=== PATIENT | female | born 1980 | race Caucasian/White ===

== ENCOUNTER → 2018-04-19 11:21 | Outpatient (CLI) | payer OTHER, SELFPAY ==
--- NOTE | 2018-04-19 11:24 | DI.RAD.S_ITS ---
PROCEDURE: XR WRIST RT MIN 3V INDICATIONS: wrist pain TECHNIQUE: 4 views of the wrist are reviewed. COMPARISON: None. FINDINGS: Bones: No fractures or dislocations. No suspicious bony lesions. Scaphoid view: Normal. Soft tissues: No suspicious soft tissue calcifications. IMPRESSION: No trauma found, source of pain is not seen. Dictated by: Bossman Stoddard M.D. on 04/19/2018 at 12:18 Approved by: Bossman Stoddard M.D. on 04/19/2018 at 12:19
--- NOTE | 2018-04-19 11:24 | DI.RAD.S_ITS ---
PROCEDURE: XR WRIST LT MIN 3V INDICATIONS: wrist pain TECHNIQUE: 4 views of the wrist were acquired. COMPARISON: [facility], CR, XR WRIST RT MIN 3V, 04/19/2018, 11:41. FINDINGS: Bones: No fractures or dislocations. No suspicious bony lesions. Scaphoid view: No trauma to the scaphoid is seen. Soft tissues: No suspicious soft tissue calcifications. IMPRESSION: No trauma found, no appreciable evidence of erosive arthritis. A definite source of current pain is not seen. Dictated by: Bossman Stoddard M.D. on 04/19/2018 at 12:19 Approved by: Bossman Stoddard M.D. on 04/19/2018 at 12:19
[2018-04-19 11:52] LABS: Hematocrit 46.4 % (36-46); Hemoglobin 15.6 g/dL (12.0-16.0); Mean Corpuscular HGB Conc 33.7 % (30-36); Mean Corpuscular Hemoglobin 30.1 PG (26-34); Mean Corpuscular Volume 89.4 fL (80-100); Platelet Count 261 X10^3/uL (150-400); Red Blood Cell Count 5.19 X10^6/uL (4.0-5.2); Red Cell Distribution Width 12.6 % (11.6-14.8); White Blood Cell Count 7.9 X10^3/uL (4.5-11.0)
[2018-04-19 12:09] LABS: Erythrocyte Sedimentation Rate 3 MM/HR (0-20)
[2018-04-19 12:25] LABS: BUN Creatinine Ratio 14.4 (6-22); Blood Urea Nitrogen 13 mg/dL (7-17); C-Reactive Protein Quant < 0.5 mg/dL (<1.0); Carbon Dioxide 27 mmol/L (22-32); Chloride 102 mmol/L (98-107); Estimated Glomerular Filt Rate > 60.0 mL/min (>60); Glucose 94 mg/dL (70-100); HEMOLYSIS < 15 (0-50); Potassium 4.6 mmol/L (3.4-5.1); Sodium 139 mmol/L (137-145)
[2018-04-19 12:26] LABS: Rheumatoid Factor < 8.6 IU/mL (<12.0)
[2018-04-19 12:53] LABS: Thyroid Stimulating Hormone 1.45 uIU/mL (0.47-4.68)
[2018-04-19 13:08] LABS: Neutrophils Absolute Manual 5056 /uL (3000-5900); Total Cells Counted 100
[2018-04-19 13:14] LABS: RBC Morphology Norm
[2018-04-23 17:02] LABS: CCP Antibody (IgG) < 16 Units (< 20)
== END ==
PROVIDERS: PCP Family Medicine; Visit Provider Family Medicine
DX: M25.532 Pain in left wrist (principal); M25.531 Pain in right wrist; M25.40 Effusion, unspecified joint; E03.9 Hypothyroidism, unspecified
CPT/HCPCS: 36415; 73110; 80048; 83516; 84443; 85025; 85651; 86140; 86430

== ENCOUNTER → 2018-04-25 12:39 | Outpatient (CLI) | payer OTHER, SELFPAY | PROVIDERS: PCP Family Medicine; Visit Provider Family Medicine | DX: M79.603 Pain in arm, unspecified (principal) | CPT/HCPCS: 95885; 95886; 95911 ==

== ENCOUNTER → 2019-08-22 09:01 | Outpatient (CLI) | payer OTHER, SELFPAY ==
[2019-08-22 09:55] LABS: Add Manual Diff / Slide Review NO; Basophils Absolute Auto 0 /uL (0-100); Basophils Percent Auto 0.3 % (0-2); Eosinophils Absolute Auto 100 /uL (0-450); Eosinophils Percent Auto 1.6 % (2-4); Hematocrit 43.4 % (36-46); Hemoglobin 14.6 g/dL (12.0-16.0); Lymphocytes Absolute Auto 1800 /uL (1100-4500); Lymphocytes Percent Auto 27.1 % (25-40); Mean Corpuscular HGB Conc 33.7 % (30-36); Mean Corpuscular Hemoglobin 30.3 PG (26-34); Monocytes Absolute Auto 400 /uL (0-900); Monocytes Percent Auto 6.2 % (3-14); Neutrophils Absolute Auto 4400 /uL (1500-7000); Neutrophils Percent Auto 64.8 % (50-75); Platelet Count 206 X10^3/uL (150-400); Red Blood Cell Count 4.82 X10^6/uL (4.0-5.2); Red Cell Distribution Width 12.6 % (11.6-14.8); White Blood Cell Count 6.8 X10^3/uL (4.5-11.0)
[2019-08-22 16:44] LABS: Alanine Aminotransferase 23 IU/L (<35); Albumin 4.3 g/dL (3.5-5.0); Albumin Globulin Ratio 1.5 (1.0-2.8); Alkaline Phosphatase 75 U/L (38-126); Aspartate Aminotransferase 27 IU/L (14-36); Bilirubin Total 0.4 mg/dL (0.2-1.3); Blood Urea Nitrogen 13 mg/dL (7-17); Calcium 9.7 mg/dL (8.4-10.2); Carbon Dioxide 27 mmol/L (22-32); Chloride 105 mmol/L (98-107); Estimated Glomerular Filt Rate > 60.0 mL/min (>60); Globulin 2.9 g/dL (1.7-4.1); Glucose 92 mg/dL (70-100); HEMOLYSIS < 15 (0-50); Potassium 4.8 mmol/L (3.4-5.1); Sodium 138 mmol/L (137-145); Total Protein 7.2 g/dL (6.3-8.2)
[2019-08-22 17:19] LABS: Ferritin 37 ng/mL (6-137)
== END ==
PROVIDERS: PCP Family Medicine; Referring Provider Family Medicine; Visit Provider Family Medicine
DX: E03.9 Hypothyroidism, unspecified (principal); M25.50 Pain in unspecified joint
CPT/HCPCS: 36415; 80053; 82728; 84443; 85025

== ENCOUNTER → 2020-09-21 14:06 | Outpatient (CLI) | payer OTHER, SELFPAY ==
[2020-09-21 16:10] LABS: Add Manual Diff / Slide Review NO; Basophils Absolute Auto 0 /uL (0-100); Basophils Percent Auto 0.4 % (0-2); Eosinophils Absolute Auto 100 /uL (0-450); Eosinophils Percent Auto 1.4 % (2-4); Hemoglobin 13.9 g/dL (12.0-16.0); Lymphocytes Absolute Auto 2500 /uL (1100-4500); Lymphocytes Percent Auto 35.3 % (25-40); Mean Corpuscular Hemoglobin 30.8 PG (26-34); Mean Corpuscular Volume 90.6 fL (80-100); Monocytes Absolute Auto 400 /uL (0-900); Neutrophils Absolute Auto 4000 /uL (1500-7000); Neutrophils Percent Auto 56.9 % (50-75); Platelet Count 217 X10^3/uL (150-400); Red Blood Cell Count 4.52 X10^6/uL (4.0-5.2); Red Cell Distribution Width 12.7 % (11.6-14.8)
[2020-09-21 16:19] LABS: Alanine Aminotransferase 28 IU/L (<35); Albumin Globulin Ratio 1.4 (1.0-2.8); Alkaline Phosphatase 93 U/L (38-126); Aspartate Aminotransferase 27 IU/L (14-36); BUN Creatinine Ratio 15.3 (6-22); Bilirubin Total 0.5 mg/dL (0.2-1.3); Blood Urea Nitrogen 11 mg/dL (7-17); C-Reactive Protein Quant 0.5 mg/dL (<1.0); Calcium 9.4 mg/dL (8.4-10.2); Carbon Dioxide 25 mmol/L (22-32); Chloride 107 mmol/L (98-107); Estimated Glomerular Filt Rate > 60.0 mL/min (>60); Globulin 2.9 g/dL (1.7-4.1); Glucose 80 mg/dL (70-100); HEMOLYSIS < 15 (0-50); Potassium 4.5 mmol/L (3.4-5.1); Sodium 138 mmol/L (137-145); Total Protein 6.9 g/dL (6.3-8.2)
[2020-09-21 16:46] LABS: Thyroid Stimulating Hormone 0.818 uIU/mL (0.47-4.68)
[2020-09-21 17:00] LABS: Erythrocyte Sedimentation Rate 5 MM/HR (0-20)
[2020-09-22 16:28] LABS: Deamidated Gliadin Ab IgA 4 units (0-19); Deamidated Gliadin Ab IgG 1 units (0-19); Immunoglobulin A,Qn 262 mg/dL (87-352); t-Transglutaminase IgA 2 U/mL (0-3)
== END ==
PROVIDERS: PCP Family Medicine; Referring Provider Family Medicine; Visit Provider Family Medicine
DX: R10.9 Unspecified abdominal pain (principal); N83.209 Unspecified ovarian cyst, unspecified side
CPT/HCPCS: 36415; 80053; 82784; 83516; 84443; 85025; 85651; 86140

== ENCOUNTER → 2020-10-27 09:15 | Outpatient (CLI) | payer OTHER, SELFPAY ==
[2020-10-27 12:30] LABS: COVID19 -Nasal RAPID Negative (Negative)
== END ==
PROVIDERS: PCP Family Medicine; Visit Provider Surgery
DX: Z01.812 Encounter for preprocedural laboratory examination (principal); Z20.822 Contact with and (suspected) exposure to COVID-19
CPT/HCPCS: 87635; C9803

== ENCOUNTER 2020-10-28 15:03 | Day surgery (SDC) | payer OTHER, SELFPAY ==
--- NOTE | 2020-10-28 | PATH_ITS ---
[facility] Accession Number: [id number] . 01 Material submitted: . colon - DESCENDING COLON POLYP, 50 CM . 02 Diagnosis: Descending Colon, Polyp, 50 cm, Biopsy: Tubular adenoma. MRV 11/02/2020 1120 Local . 02 Electronically signed: . Janey Crain MD, Pathologist NPI- [id number] . 01 Gross description: . DESCENDING COLON POLYP, 50 CM: Received in formalin are 2 fragment(s) of uribe, soft tissue measuring 1.0 x 0.6 x 0.5 cm to 0.3 x 0.2 x 0.1 cm submitted entirely in 1 cassette(s) /PETE 10/29/2020 0459 Local . 02 Pathologist provided ICD-10: D12.4 . 02 CPT . 375061 Performed at: 01 [facility] [address], [place], [place] [id number] MD Iban Alexandra MD Phone: [phone] Performed at: [address] [facility] [address] [place], [place] [id number] MD Janey Crain MD Phone: [phone]
[2020-10-28 15:12] VITALS: BP 122/86; PULSE 75; RESP 16; TEMP 36.7; O2SAT 97; BMI 28.0
[2020-10-28] MEDS: LACTATED RINGERS 1,000 ML 200 ML IV (15:35)
--- NOTE | 2020-10-28 15:42 | PM.PREOP ---
Pre-operative Note Interval Note History & Physical reviewed/Exam performed by Physician: Yes Changes to H&P: No
[2020-10-28] MEDS: ONDANSETRON 4 MG/2 ML INJ IV (15:46)
[2020-10-28] MEDS: MIDAZOLAM 5 MG/5 ML VIAL IV (15:56)
[2020-10-28] MEDS: fentaNYL 250 MCG/5 ML INJ IV (15:56)
--- NOTE | 2020-10-28 16:18 | PM.OP.ENDO ---
Operative Date/Time/Diagnoses Date of procedure: 10/28/20 Time of procedure: 16:18 Pre-op diagnosis: abdominal pain Post-op diagnosis: other (colonic polyp) Procedure & Clinicians Study performed: colonoscopy Same procedure as scheduled: Yes Indications: abdominal pain Surgeon: Damaso Leigh Procedure Notes Procedure in detail: Medications: Conscious sedation using 6mg IV midazolam and 250mcg IV of fentanyl The history and physical was performed/updated and the patient is ASA class is 2. The procedure was discussed in detail with the patient. Potential risks complications including infection, bleeding, missed diagnosis, perforation, need for surgery, and were explained. Their questions were answered and informed consent was obtained. Patient was brought to the procedure room and placed standard monitoring equipment. The patient's vital signs were monitored continuously throughout the entire procedure. Prior to starting time-out was performed. The patient was placed in the left lateral recumbent position. Procedural sedation was administered. Examination began with a thorough inspection of the perianal area there was no evidence of fissures, fistulae, external hemorrhoids or cutaneous malignancy. The colonoscopy scope was then placed into the anal canal and was advanced to the cecum, which was identified by the ileocecal valve, the appendiceal orifice and the confluence of the taenia. The scope was then slowly withdrawn examining colon thoroughly in all directions, irrigating it of any residual stool. FINDINGS 1. Descending colon 50 cm from the anal verge. 1 cm pedunculated polyp removed with snare. 2. Remainder of colon was normal The patient tolerated the procedure well. They will be discharged once criteria are met. The prep was of good/excellent quality. The withdrawl time was 8 minutes. The sedation time was 30 minutes. Specimen(s): other (descending colon polyp) Complications: none Impression: colonic polyp Post-procedure Recommendations: Colonscopy in 5 years Disposition: same day surgery
[2020-10-28 16:22] VITALS: BP 115/81; PULSE 71; RESP 16; TEMP 36.3; O2SAT 96
[2020-10-28 16:27] VITALS: BP 126/88; PULSE 73; RESP 16; O2SAT 97
[2020-10-28 16:32] VITALS: BP 118/88; PULSE 63; RESP 14; TEMP 36.6; O2SAT 97
[2020-10-28 16:37] VITALS: BP 125/85; PULSE 60; RESP 14; TEMP 36.1; O2SAT 98
--- NOTE | 2020-10-28 16:45 | SUR.PHASEII ---
pt given discharge instructions. Pt denies pain and nausea. Pt states she understands discharge instructions. pt to be discharged with her . Pt had 2 cups of juice prior to discharge.
== END 2020-10-28 16:47 | disposition home or self-care (01) ==
PROVIDERS: PCP Family Medicine; Referring Provider Surgery; Visit Provider Surgery
PROC: 0DJD8ZZ Inspection of Lower Intestinal Tract, Via Natural or Artificial Opening Endoscopic (ICD-10-PCS; CPT 45378; principal; 2020-10-28 16:00)
DX: D12.4 Benign neoplasm of descending colon (principal); R10.30 Lower abdominal pain, unspecified
CPT/HCPCS: 45385; 99152; 99153; J2250; J2405; J3010

== ENCOUNTER → 2021-08-29 08:56 | Outpatient (CLI) | payer OTHER, SELFPAY ==
[2021-08-29 10:16] LABS: Cholesterol 196 mg/dL (140-199); HDL Cholesterol 55 mg/dL (40-60); LDL Cholesterol Calculated 129 mg/dL (<100); Triglycerides 58 mg/dL (35-150)
[2021-08-29 11:27] LABS: TSH w/ Reflex to FT4 0.97 uIU/mL (0.47-4.68)
== END ==
PROVIDERS: PCP Family Medicine; Referring Provider Family Medicine; Visit Provider Family Medicine
DX: E03.9 Hypothyroidism, unspecified (principal)
CPT/HCPCS: 36415; 80061; 84443

== ENCOUNTER → 2021-09-05 09:55 | Outpatient (CLI) | payer OTHER, SELFPAY ==
[2021-09-05 12:14] LABS: Follicle Stimulating Hormone 40.1 mIU/mL; Luteinizing Hormone 24.2 mIU/mL
== END ==
PROVIDERS: PCP Family Medicine; Referring Provider Family Medicine; Visit Provider Family Medicine
DX: Z90.722 Acquired absence of ovaries, bilateral (principal); Z79.890 Hormone replacement therapy
CPT/HCPCS: 36415; 83001; 83002

== ENCOUNTER → 2022-01-16 10:15 | Outpatient (CLI) | payer OTHER, SELFPAY ==
[2022-01-16 13:52] LABS: Add Manual Diff / Slide Review NO; Basophils Absolute Auto 0 /uL (0-100); Basophils Percent Auto 0.5 % (0-2); Eosinophils Absolute Auto 100 /uL (0-450); Eosinophils Percent Auto 1.7 % (2-4); Hematocrit 42.8 % (36-46); Hemoglobin 14.5 g/dL (12.0-16.0); Lymphocytes Absolute Auto 2000 /uL (1100-4500); Lymphocytes Percent Auto 29.6 % (25-40); Mean Corpuscular HGB Conc 33.9 % (30-36); Mean Corpuscular Volume 88.5 fL (80-100); Monocytes Absolute Auto 400 /uL (0-900); Monocytes Percent Auto 5.3 % (3-14); Neutrophils Absolute Auto 4300 /uL (1500-7000); Neutrophils Percent Auto 62.9 % (50-75); Platelet Count 227 X10^3/uL (150-400); Red Blood Cell Count 4.84 X10^6/uL (4.0-5.2); Red Cell Distribution Width 12.6 % (11.6-14.8); White Blood Cell Count 6.9 X10^3/uL (4.5-11.0)
[2022-01-16 14:05] LABS: Erythrocyte Sedimentation Rate 3 MM/HR (0-20)
[2022-01-16 15:52] LABS: HEMOLYSIS < 15 (0-50)
[2022-01-16 15:59] LABS: Estimated Glomerular Filt Rate > 60 mL/min (>60)
[2022-01-16 16:00] LABS: Alanine Aminotransferase 36 IU/L (<35); Albumin 4.2 g/dL (3.5-5.0); Albumin Globulin Ratio 1.4 (1.0-2.8); Alkaline Phosphatase 102 U/L (38-126); Aspartate Aminotransferase 25 IU/L (14-36); BUN Creatinine Ratio 16.9 (6-22); Bilirubin Total 0.4 mg/dL (0.2-1.3); Blood Urea Nitrogen 12 mg/dL (7-17); C-Reactive Protein Quant 0.8 mg/dL (<1.0); Calcium 9.2 mg/dL (8.4-10.2); Carbon Dioxide 28 mmol/L (22-32); Chloride 101 mmol/L (98-107); Globulin 2.9 g/dL (1.7-4.1); Glucose 80 mg/dL (70-100); Potassium 4.9 mmol/L (3.4-5.1); Sodium 140 mmol/L (137-145); Total Protein 7.1 g/dL (6.3-8.2)
[2022-01-17 16:01] LABS: Rheumatoid Factor < 8.6 IU/mL (<12.0)
== END ==
PROVIDERS: PCP Family Medicine; Referring Provider Family Medicine; Visit Provider Family Medicine
DX: M25.50 Pain in unspecified joint (principal)
CPT/HCPCS: 36415; 80053; 85025; 85651; 86140; 86430

== ENCOUNTER 2022-02-15 11:06 | Emergency (ER) | payer OTHER, SELFPAY ==
[2022-02-15 11:37] VITALS: BP 153/83; PULSE 82; RESP 16; TEMP 37.1; O2SAT 98; BMI 31.1
--- NOTE | 2022-02-15 11:47 | ED_ITS ---
HPI - Arrhythmia/Palpitations General Chief Complaint: Arrhythmia/Palpitations Stated Complaint: SOB,high heart rate Time Seen by Provider: 02/15/22 11:46 Source: patient Mode of arrival: Ambulatory History of Present Illness HPI narrative: 42-year-old female nonsmoker with history of hypothyroid presents with a chief complaint of a few episodes of rapid heart rate with associated shortness of breath over the past day or 2. She states that she is been in her normal state of health without any changes in medication or diet and states that her heart rate shot up to 139 per her smart watch without explanation. The symptoms lasted a few minutes and all resolved as her heart rate dropped back down into the 60s which is normal for her. She denies any change in diet such as caffeine, nicotine or alcohol. She is had no supplement addition. She states that she is been under some increased stress was denies any change in sleep phyllis erns or habits. Related Data Previous Rx's Medication Instructions Recorded estradiol 1 mg tablet 1 mg PO QDAY #100 tabs 08/10/21 levothyroxine 50 mcg tablet 50 mcg PO QAM #90 tabs 09/12/21 (Synthroid) celecoxib 200 mg capsule 200 mg PO BID #60 caps 01/12/22 phentermine 37.5 mg tablet 37.5 mg PO DAILY #30 tabs 01/12/22 Allergies Allergy/AdvReac Type Severity Reaction Status Date / Time adhesive [ADHESIVE] Allergy Unknown SENSTIVE Verified 01/12/22 09:49 venom-honey bee Allergy Unknown Verified 01/12/22 09:49 [BEE VENOM (HONEY BEE)] Review of Systems Review of Systems Narrative: GENERAL: Denies chills, fatigue, malaise, fever, sweats. HEENT: Denies sinus pain, ear pain, sore throat, difficulty swallowing, dizziness. RESPIRATORY: See HPI CARDIOVASCULAR: See HPI GASTROINTESTINAL: Denies nausea, vomiting, abdominal pain, diarrhea, constipation, melena. : Denies dysuria, frequency, incontinence, hematuria, urinary retention. MUSCULOSKELETAL: denies weakness, joint pain, or bony pain SKIN: Denies rash, skin lesions, or other NEUROLOGIC: Denies weakness, headache, numbness, change in speech, confusion, seizures, incoordination. PSYCHIATRIC: No concerning psychosocial issues. 12 point review of systems is negative except for those stated above Patient History Medical History Abdominal pain Keloid scar OTHER SPECIFIED ABNORMAL UTERINE AND VAGINAL BLEEDING Pain in pelvis (06/15/15) Surgical History History of third molar tooth extraction Status post delivery (08/02/12) Status post delivery (09/01/08) Status post dilation and curettage Status post laparoscopic supracervical hysterectomy Status post laparoscopy (11/27/14) Status post laparoscopy (01/22/15) Status post laparoscopy (03/08/15) Family History Father Age: 66 Hypertension High cholesterol Mother Heart disease Sister Age: 45 Hypertension High cholesterol Sister Age: 39 Bladder cancer Social History marital status: household members: spouse Smoking Status: Never smoker alcohol intake: current substance use type: does not use Smoking Status: Never smoker alcohol intake frequency: holidays/special occasions only Substance Use Type: does not use Exam Narrative Exam Narrative: GENERAL: [42] year old patient appears stated age. Well-developed patient, in mild distress. HEAD: Atraumatic. Normocephalic. EYES: Pupils equal round and reactive. Extraocular motions intact. No scleral icterus. No injection or drainage. ENT: Nose without bleeding, purulent drainage. Throat without erythema, tonsillar hypertrophy or exudate. Airway patent. NECK: Trachea midline. Non tender CARDIOVASCULAR: Regular rate and rhythm without murmurs, gallops, or rubs. RESPIRATORY: Clear to auscultation. Breath sounds equal bilaterally. No wheezes, rales, or rhonchi. GASTROINTESTINAL: Abdomen soft, non-tender, nondistended. EXTREMITIES: No edema or joint tenderness. BACK: Nontender without deformity or crepitance. No flank tenderness. NEURO: AOx3. SKIN: No rash or erythema of visible areas Initial Vital Signs Initial Vital Signs: Vital Signs Temperature 98.7 F 02/15/22 11:37 Pulse Rate 82 02/15/22 11:37 Respiratory Rate 16 02/15/22 11:37 Blood Pressure 153/83 H 02/15/22 11:37 Pulse Oximetry 98 02/15/22 11:37 Oxygen Delivery Method 02/15/22 11:37 Course Orders Ordered: ED Orders 02/15/22 12:05 EKG-12 Lead Stat 02/15/22 12:14 Complete Blood Count AUTO DIFF Stat Comprehensive Metabolic Panel Stat D Dimer Stat Magnesium Stat TSH w/ Reflex to FT4 Stat Troponin & CK Cardiac Panel Stat Discontinued Medications Sodium Chloride (Normal Saline 0.9%) 1,000 mls @ 1,000 mls/hr IV BOLUS ONE Stop: 02/15/22 12:45 Last Admin: 02/15/22 12:35 Dose: 1,000 mls/hr Documented By: ARMOND Vital Signs Vital signs: Vital Signs - 8 hr 02/15/22 11:37 02/15/22 12:52 Temperature 98.7 F Pulse Rate 82 68 Respiratory Rate 16 18 Blood Pressure 153/83 H 128/63 Pulse Oximetry 98 99 Oxygen Delivery Method Room Air Room Air MDM - Arrhythmia/Palpitations Lab Data Result diagrams: 02/15/22 12:14 02/15/22 12:14 Labs: Lab Results 02/15/22 02/15/22 02/15/22 Range/Units 12:14 12:14 12:14 WBC 6.7 (4.5-11.0) X10^3/uL RBC 4.72 (4.0-5.2) X10^6/uL Hgb 14.3 (12.0-16.0) g/dL Hct 41.8 (36-46) % MCV 88.4 (80-100) fL MCH 30.2 (26-34) PG MCHC 34.2 (30-36) % RDW 12.9 (11.6-14.8) % Plt Count 235 (150-400) X10^3/uL Neut % (Auto) 59.4 (50-75) % Lymph % (Auto) 32.3 (25-40) % Weakley % (Auto) 6.4 (3-14) % Eos % (Auto) 1.4 L (2-4) % Baso % (Auto) 0.5 (0-2) % Neut # (Auto) 4000 (9336-6303) /uL Lymph # (Auto) 2200 (4854-0115) /uL Weakley # (Auto) 400 (0-900) /uL Eos # (Auto) 100 (0-450) /uL Baso # (Auto) 0 (0-100) /uL D-Dimer 322 (<500) ng/ml Sodium 138 (137-145) mmol/L Potassium 4.0 (3.4-5.1) mmol/L Chloride 103 (98-107) mmol/L Carbon Dioxide 29 (22-32) mmol/L BUN 10 (7-17) mg/dL Creatinine 0.68 (0.52-1.04) mg/dL Estimated GFR > 60 (>60) mL/min BUN/Creatinine Ratio 14.7 (6-22) Glucose 85 (70-100) mg/dL Calcium 9.0 (8.4-10.2) mg/dL Magnesium (1.6-2.3) mg/dL Total Bilirubin 0.5 (0.2-1.3) mg/dL AST 30 (14-36) IU/L ALT 45 H (<35) IU/L Alkaline Phosphatase 101 (38-126) U/L Total Creatine Kinase (30-135) U/L CK-MB (CK-2) CK-MB (CK-2) Rel Index Troponin I (0.01-0.034) ng/mL Total Protein 7.4 (6.3-8.2) g/dL Albumin 4.1 (3.5-5.0) g/dL Globulin 3.3 (1.7-4.1) g/dL Albumin/Globulin Ratio 1.2 (1.0-2.8) TSH (0.47-4.68) uIU/mL 02/15/22 02/15/22 Range/Units 12:14 12:14 WBC (4.5-11.0) X10^3/uL RBC (4.0-5.2) X10^6/uL Hgb (12.0-16.0) g/dL Hct (36-46) % MCV (80-100) fL MCH (26-34) PG MCHC (30-36) % RDW (11.6-14.8) % Plt Count (150-400) X10^3/uL Neut % (Auto) (50-75) % Lymph % (Auto) (25-40) % Weakley % (Auto) (3-14) % Eos % (Auto) (2-4) % Baso % (Auto) (0-2) % Neut # (Auto) (9756-2337) /uL Lymph # (Auto) (9637-4404) /uL Weakley # (Auto) (0-900) /uL Eos # (Auto) (0-450) /uL Baso # (Auto) (0-100) /uL D-Dimer (<500) ng/ml Sodium (137-145) mmol/L Potassium (3.4-5.1) mmol/L Chloride (98-107) mmol/L Carbon Dioxide (22-32) mmol/L BUN (7-17) mg/dL Creatinine (0.52-1.04) mg/dL Estimated GFR (>60) mL/min BUN/Creatinine Ratio (6-22) Glucose (70-100) mg/dL Calcium (8.4-10.2) mg/dL Magnesium 1.9 (1.6-2.3) mg/dL Total Bilirubin (0.2-1.3) mg/dL AST (14-36) IU/L ALT (<35) IU/L Alkaline Phosphatase (38-126) U/L Total Creatine Kinase 54 (30-135) U/L CK-MB (CK-2) TNP CK-MB (CK-2) Rel Index TNP Troponin I < 0.012 (0.01-0.034) ng/mL Total Protein (6.3-8.2) g/dL Albumin (3.5-5.0) g/dL Globulin (1.7-4.1) g/dL Albumin/Globulin Ratio (1.0-2.8) TSH 1.05 (0.47-4.68) uIU/mL ECG Data Interpretation: [1205] EKG is normal sinus rhythm rate [ 69] and free of any signs of ischemia or ectopy. No ST segmental elevation or depression. No T wave inversions MDM Narrative Medical decision making narrative: [42-year-old female nonsmoker with history of hypothyroid presents with palpitations] Multiple etiologies for patient's symptoms considered including, but not limited to: [Thyroid abnormality, electrolyte abnormality, SVT versus other] Prior Charts reviewed: Including prior primary care visits from August and January of this year Labs reviewed and interpreted by myself: No significant or notable lab abnormalities such as anemia, signs of infection, electrolyte abnormalities. Given her relatively recent travel pulmonary embolism was considered a possibility though thought unlikely given lack of persistent symptoms, however D-dimer was ordered and negative. No indication for further evaluation with CT angiogram. Patient on monitor for duration of visit and was not only asymptomatic but also demonstrated no palpitations or arrhythmias during her visit. We were able to look at her smart watch in noted a brief episode of heart rate jumping as high as 139 earlier today. Findings and discharge diagnosis discussed with patient/family followed by verbalization of understanding Return precautions discussed with patient/family whom verbalize understanding of diagnosis and plan Discharge Plan Departure Patient Disposition: Home Clinical Impression: Palpitations Instructions: DI for Palpitations Activity Restrictions/Additional Instructions: *You have been diagnosed with [palpitations. As we discussed your history and physical exam are reassuring and today's lab evaluation and EKGs demonstrate no significant abnormality which would require a specific or immediate intervention] *What to do: *Please continue to take your regular medications as directed. *Please follow up with your primary care provider in 2-3 days, call for an appointment. Let them know you were seen in the Emergency Department and that we ask that you be seen in follow up. We will electronically transmit a record of today's note if your PCP is in our system * as we discussed, please avoid any significant caffeine, nicotine, alcohol or other [id number] stimulants or supplements as these can increase the likelihood of recurrent episodes *Return to Emergency Department if you should have any new, worsening or concerning symptoms, such as [fever greater than 101 F, shaking chills, worsening pain, persistent vomiting or other bothersome symptoms] Prescriptions: No Action celecoxib 200 mg capsule 200 mg PO BID Qty: 60 1RF phentermine 37.5 mg tablet 37.5 mg PO DAILY Qty: 30 0RF Rx Instructions: must administer 30 minutes before or 1-2 hours after breakfast estradiol 1 mg tablet 1 mg PO QDAY Qty: 100 3RF levothyroxine [Synthroid] 50 mcg tablet 50 mcg PO QAM Qty: 90 3RF Referrals: Polo Callahan MD [Primary Care Provider] - Stand Alone Forms: Patient Portal/API
[2022-02-15 12:26] LABS: Add Manual Diff / Slide Review NO; Basophils Absolute Auto 0 /uL (0-100); Basophils Percent Auto 0.5 % (0-2); Eosinophils Absolute Auto 100 /uL (0-450); Eosinophils Percent Auto 1.4 % (2-4); Hematocrit 41.8 % (36-46); Hemoglobin 14.3 g/dL (12.0-16.0); Lymphocytes Absolute Auto 2200 /uL (1100-4500); Lymphocytes Percent Auto 32.3 % (25-40); Mean Corpuscular HGB Conc 34.2 % (30-36); Mean Corpuscular Hemoglobin 30.2 PG (26-34); Mean Corpuscular Volume 88.4 fL (80-100); Monocytes Absolute Auto 400 /uL (0-900); Monocytes Percent Auto 6.4 % (3-14); Neutrophils Absolute Auto 4000 /uL (1500-7000); Neutrophils Percent Auto 59.4 % (50-75); Platelet Count 235 X10^3/uL (150-400); Red Blood Cell Count 4.72 X10^6/uL (4.0-5.2); Red Cell Distribution Width 12.9 % (11.6-14.8); White Blood Cell Count 6.7 X10^3/uL (4.5-11.0)
[2022-02-15] MEDS: SODIUM CHLORIDE 0.9% 1,000 ML 1000 ML IV (12:35)
[2022-02-15 12:43] LABS: Alanine Aminotransferase 45 IU/L (<35); Albumin 4.1 g/dL (3.5-5.0); Albumin Globulin Ratio 1.2 (1.0-2.8); Alkaline Phosphatase 101 U/L (38-126); Aspartate Aminotransferase 30 IU/L (14-36); BUN Creatinine Ratio 14.7 (6-22); Bilirubin Total 0.5 mg/dL (0.2-1.3); Blood Urea Nitrogen 10 mg/dL (7-17); Carbon Dioxide 29 mmol/L (22-32); Chloride 103 mmol/L (98-107); Estimated Glomerular Filt Rate > 60 mL/min (>60); Globulin 3.3 g/dL (1.7-4.1); Glucose 85 mg/dL (70-100); HEMOLYSIS < 15 (0-50); Sodium 138 mmol/L (137-145); Total Protein 7.4 g/dL (6.3-8.2)
[2022-02-15 12:44] LABS: Creatine Kinase 54 U/L (30-135); Magnesium 1.9 mg/dL (1.6-2.3)
[2022-02-15 12:52] VITALS: BP 128/63; PULSE 68; RESP 18; O2SAT 99
[2022-02-15 12:53] LABS: D Dimer 322 ng/ml (<500)
[2022-02-15 12:55] LABS: Troponin I < 0.012 ng/mL (0.01-0.034)
[2022-02-15 13:21] LABS: TSH w/ Reflex to FT4 1.05 uIU/mL (0.47-4.68)
== END 2022-02-15 13:45 | disposition home or self-care (01) ==
PROVIDERS: Emergency Provider Emergency Medicine; PCP Family Medicine
DX: R00.2 Palpitations (principal)
CPT/HCPCS: 36415; 80053; 82550; 83735; 84443; 84484; 85025; 85379; 93005; 93010; 96360; 99284

== ENCOUNTER → 2022-03-02 09:41 | Outpatient (CLI) | payer OTHER, SELFPAY ==
--- NOTE | 2022-03-23 14:58 | P.HOLT.S_ITS ---
[employer] Scientist Report Referral & Results Date Patient Seen: 03/02/22 Requesting provider: Polo Callahan Indication: Palpitations Duration of monitoring (days): 14 Diary information: There were 3 patient triggered events and 2 patient diary entries to review Patient diary entries were associated with sinus rhythm only Patient triggered events were variably associated with (within 45 seconds) sinus rhythm and simple PACs and PVCs Data: Minimum heart rate identified was 41 beats per minute at 05:34 on 03/07/2022 Maximum heart rate was sinus and 145 beats per minute at 19:25 on 03/13/2022 Less than 1% of identified beats were ventricular or supraventricular ectopic in origin, which would classify them as rare. There were no episodes of atrial fibrillation, pauses of 3 seconds or longer, or episodes of SVT identified on this study Impression: 14 day threat monitoring analyst demonstrating no clear etiology for patient's reported symptoms. Patient had symptoms with sinus rhythm PVCs and PACs No other more serious dysrhythmias identified on this study Clinical correlation suggested
== END ==
PROVIDERS: PCP Family Medicine; Referring Provider Family Medicine; Visit Provider Family Medicine
DX: R00.2 Palpitations (principal)
CPT/HCPCS: 93246; 93248

== ENCOUNTER 2022-08-10 18:29 | Emergency (ER) | payer OTHER, SELFPAY ==
[2022-08-10 18:32] VITALS: BP 175/98; PULSE 86; RESP 18; TEMP 36.9; O2SAT 96; BMI 32.5
--- NOTE | 2022-08-10 18:57 | ED_ITS ---
HPI - Back Pain/Injury General Chief Complaint: Back Pain/Injury Stated Complaint: Back/side pain Time Seen by Provider: 08/10/22 18:33 Source: patient History of Present Illness HPI Narrative: 42-year-old female nonsmoker with a history of ovarian cysts, hypothyroid presents with a chief complaint of left-sided back pain for the past few days. She states it started on Sunday after working in her garden. She had been bending, lifting and twisting heavy objects but denies any specific traumatic event. She states that it gradually worsened to the point where she presented to the walk-in clinic on Sunday. She was given a shot of Toradol and has been taking diclofenac without much relief. Her pain is severe with motion and improves with rest. She denies any lower extremity numbness, tingling or weakness. She denies any fever or chills. She denies loss of control or bowel or bladder. She denies any dysuria, frequency, urgency or hematuria. Related Data Previous Rx's Medication Instructions Recorded estradiol 1 mg tablet 1 mg PO QDAY #100 tabs 08/10/21 levothyroxine 50 mcg tablet 50 mcg PO QAM #90 tabs 09/12/21 (Synthroid) celecoxib 200 mg capsule 200 mg PO BID #60 caps 01/12/22 phentermine 37.5 mg tablet 37.5 mg PO DAILY #30 tabs 07/26/22 cyclobenzaprine 10 mg tablet 10 mg PO TID PRN muscle spasm #14 08/10/22 tabs hydrocodone 5 mg-acetaminophen 325 1 tab PO Q4-6H PRN pain #10 tabs 08/10/22 mg tablet lidocaine 5 % topical patch 1 patch topical DAILY #15 ea 08/10/22 (Lidoderm) Allergies Allergy/AdvReac Type Severity Reaction Status Date / Time adhesive [ADHESIVE] Allergy Unknown SENSTIVE Verified 01/12/22 09:49 venom-honey bee Allergy Unknown Verified 01/12/22 09:49 [BEE VENOM (HONEY BEE)] Review of Systems Review of Systems Narrative: GENERAL: Denies chills, fatigue, malaise, fever, sweats. HEENT: Denies sinus pain, ear pain, sore throat, difficulty swallowing, dizziness. RESPIRATORY: Denies dyspnea, cough, wheezing, hemoptysis, sputum. CARDIOVASCULAR: Denies chest pain, palpitations, orthopnea, edema, GASTROINTESTINAL: Denies nausea, vomiting, abdominal pain, diarrhea, constipation, melena. : Denies dysuria, frequency, incontinence, hematuria, urinary retention. MUSCULOSKELETAL: See HPI SKIN: Denies rash, skin lesions, or other NEUROLOGIC: Denies weakness, headache, numbness, change in speech, confusion, seizures, incoordination. PSYCHIATRIC: No concerning psychosocial issues. 12 point review of systems is negative except for those stated above Patient History Medical History Abdominal pain Keloid scar OTHER SPECIFIED ABNORMAL UTERINE AND VAGINAL BLEEDING Pain in pelvis (06/15/15) Surgical History History of third molar tooth extraction Status post delivery (08/02/12) Status post delivery (09/01/08) Status post dilation and curettage Status post laparoscopic supracervical hysterectomy Status post laparoscopy (11/27/14) Status post laparoscopy (01/22/15) Status post laparoscopy (03/08/15) Family History Father Age: 66 Hypertension High cholesterol Mother Heart disease Sister Age: 45 Hypertension High cholesterol Sister Age: 39 Bladder cancer Social History marital status: household members: spouse Smoking Status: Never smoker alcohol intake: current substance use type: does not use Smoking Status: Never smoker alcohol intake frequency: holidays/special occasions only Substance Use Type: does not use Exam Narrative Exam Narrative: GENERAL: [42] year old patient appears stated age. Well-developed patient, in obvious distress, rubbing her left-sided back HEAD: Atraumatic. Normocephalic. EYES: Pupils equal round and reactive. Extraocular motions intact. No scleral icterus. No injection or drainage. ENT: Nose without bleeding, purulent drainage. Throat without erythema, tonsillar hypertrophy or exudate. Airway patent. NECK: Trachea midline. Non tender CARDIOVASCULAR: Regular rate and rhythm without murmurs, gallops, or rubs. RESPIRATORY: Clear to auscultation. Breath sounds equal bilaterally. No wheezes, rales, or rhonchi. GASTROINTESTINAL: Abdomen soft, non-tender, nondistended. EXTREMITIES: No edema or joint tenderness. BACK: Nontender without deformity or crepitance. No flank tenderness. NEURO: AOx3. SKIN: No rash or erythema of visible areas Initial Vital Signs Initial Vital Signs: Vital Signs Temperature 98.4 F 08/10/22 18:32 Pulse Rate 86 08/10/22 18:32 Respiratory Rate 18 08/10/22 18:32 Blood Pressure 175/98 H 08/10/22 18:32 Pulse Oximetry 96 08/10/22 18:32 Oxygen Delivery Method Room Air 08/10/22 18:32 Course Orders Ordered: ED Orders 08/10/22 22:17 US renal complete Stat Discontinued Medications Hydrocodone Bitart/Acetaminophen (Hydrocodone/Acet 5/325 Prepack) 1 bottle MISC SEEINSTR ONE Stop: 08/10/22 23:15 Last Admin: 08/10/22 23:29 Dose: 1 bottle Documented By: SATISH Cyclobenzaprine HCl (Cyclobenzaprine 10 Mg Prepack) 1 bottle MISC SEEINSTR ONE Stop: 08/10/22 23:15 Last Admin: 08/10/22 23:29 Dose: 1 bottle Documented By: SATISH Diazepam (Diazepam 5 Mg Tablet) 5 mg PO NOW ONE Stop: 08/10/22 21:07 Last Admin: 08/10/22 21:16 Dose: 5 mg Documented By: SATISH Ketorolac Tromethamine (Ketorolac 30 Mg/Ml Vial) 30 mg IM NOW ONE Stop: 08/10/22 21:07 Last Admin: 08/10/22 21:15 Dose: 30 mg Documented By: SATISH Lidocaine (Lidocaine Patch 1 Each Adh..Patch) 1 each TOP NOW ONE Stop: 08/10/22 23:15 Last Admin: 08/10/22 23:29 Dose: 1 each Documented By: SATISH Vital Signs Vital signs: Vital Signs - 8 hr 08/10/22 18:32 Temperature 98.4 F Pulse Rate 86 Respiratory Rate 18 Blood Pressure 175/98 H Pulse Oximetry 96 Oxygen Delivery Method Room Air MDM - Back Pain/Injury Lab Data Labs: Point of Care Testing Test Results Negative Urine Dip Bedside Urine Glucose Negative Bedside Urine Bilirubin - Negative Bedside Urine Ketone - Negative Urine Specific [place] 1.025 Bedside Urine Occult Blood - Negative Bedside Urine pH 6.0 Bedside Urine Protein - Negative Bedside Urine Urobilinogen +/- 1mg Bedside Urine Nitrite - Negative Bedside Urine Leukocytes - Negative Esterase MDM Narrative Medical decision making narrative: [42] year old patient presents with left sided back pain Multiple etiologies for patient's symptoms considered including, but not limited to: [Musculoskeletal versus kidney stone versus urine infection versus other] Prior Charts reviewed in our EMR Primary Historian: patient Labs reviewed and interpreted by myself: No evidence of infection urine Imaging reviewed: Renal ultrasound without obvious findings Patient's symptoms improved over duration of stay with above-stated therapies. Findings and discharge diagnosis discussed with patient/family followed by verbalization of understanding Return precautions discussed with patient/family whom verbalize understanding of diagnosis and plan Discharge Plan Departure Patient Disposition: Home Clinical Impression: Thoracic back pain Instructions: DI for Muscle Strain Activity Restrictions/Additional Instructions: *You have been diagnosed with [back pain, most likely due to spasm and inflammation] *What to do: *Please continue to take your regular medications as directed. [ x] New medication prescriptions sent to your pharmacy: [[facility] ] [ ] New medication written as a paper prescription [ ] No new medications given *Please follow up with your primary care provider in 2-3 days, call for an appointment. Let them know you were seen in the Emergency Department and that we ask that you be seen in follow up. We will electronically transmit a record of today's note if your PCP is in our system *If you do not have a primary care provider please contact the [facility] Resource line at [phone]. They will ask some questions about your medical history and help get you set up with a doctor in the community. *Return to Emergency Department if you should have any new, worsening or concerning symptoms, such as [fever greater than 101 F, shaking chills, worsening pain, persistent vomiting or other bothersome symptoms] You have been prescribed a short course of narcotic medications. These are potentially dangerous and addictive medications that should be used carefully. While on these medications you cannot drive or operate heavy machinery. Additionally, you cannot sign legal documents or perform any duties such as this. Many people get constipated on narcotic medications so it would be advisable to discuss stool softeners with the pharmacist when you picker and sorter load and unload your prescription. Please understand that we cannot provide further refills of narcotics or controlled substances through the ED and your pain management will need to be through your Primary Care Provider Prescriptions: New cyclobenzaprine 10 mg tablet 10 mg PO TID PRN (Reason: muscle spasm) Qty: 14 0RF hydrocodone-acetaminophen 5-325 mg tablet 1 tab PO Q4-6H PRN (Reason: pain) Qty: 10 0RF lidocaine [Lidoderm] 5 % adhesive patch,medicated 1 patch TOP DAILY Qty: 15 0RF Rx Instructions: leave on most painful area for 12 hrs No Action celecoxib 200 mg capsule 200 mg PO BID Qty: 60 1RF estradiol 1 mg tablet 1 mg PO QDAY Qty: 100 3RF levothyroxine [Synthroid] 50 mcg tablet 50 mcg PO QAM Qty: 90 3RF phentermine 37.5 mg tablet 37.5 mg PO DAILY Qty: 30 0RF Rx Instructions: must administer 30 minutes before or 1-2 hours after breakfast Referrals: Polo Callahan MD [Primary Care Provider] - Stand Alone Forms: Patient Portal/API
[2022-08-10] MEDS: KETOROLAC 30 MG/ML VIAL IM (21:15)
[2022-08-10] MEDS: diazePAM 5 MG TABLET PO (21:16)
--- NOTE | 2022-08-10 22:17 | DI.US.S_ITS ---
PROCEDURE: US RENAL COMPLETE INDICATIONS: WORSENING LEFT FLANK PAIN TECHNIQUE: Real-time scanning was performed of the kidneys and bladder, with image documentation. COMPARISON: None. FINDINGS: Kidneys: Kidneys are normal in size. Right kidney measures 11.6t cm long; left kidney measures 1.0 cm long. Right renal cortical thickness is 11.3 cm; left renal cortical thickness is 1.0 cm. Renal cortical echotexture is normal. No hydronephrosis or nephrolithiasis. No suspicious solid mass lesions. Bladder: Pre-void bladder volume is 39 mL. Post-void residual was not obtained. Pre-void images demonstrate no intraluminal masses or stones. On pre-void images, only the right ureteral jet is noted with color Doppler interrogation. (Of note, ureteral jets may not be detectable in up to 25% of cases due to insufficient differences in specific gravity between ureteral and bladder urine). Miscellaneous: No free pelvic fluid. IMPRESSION: No obstruction or visualized stone. Dictated by: Kelly Gore M.D. on 08/10/2022 at 23:14 Approved by: Kelly Gore M.D. on 08/10/2022 at 23:15
[2022-08-10] MEDS: HYDROCODONE/ACET 5/325 PREPACK 1 BOTTLE MISC (23:29)
[2022-08-10] MEDS: LIDOCAINE PATCH 1 EACH ADH..PATCH TOP (23:29)
[2022-08-10] MEDS: CYCLOBENZAPRINE 10 MG PREPACK 1 BOTTLE MISC (23:29)
== END 2022-08-10 23:36 | disposition home or self-care (01) ==
PROVIDERS: Emergency Provider Emergency Medicine; PCP Family Medicine
DX: M54.6 Pain in thoracic spine (principal)
CPT/HCPCS: 76770; 81003; 81025; 96372; 99283; 99284; J1885

== ENCOUNTER → 2022-12-28 16:51 | Outpatient (CLI) | payer OTHER, SELFPAY ==
[2022-12-28 17:41] LABS: Add Manual Diff / Slide Review NO; Basophils Absolute Auto 100 /uL (0-100); Basophils Percent Auto 1.1 % (0-2); Eosinophils Absolute Auto 100 /uL (0-450); Eosinophils Percent Auto 1.5 % (2-4); Hematocrit 41.3 % (36-46); Hemoglobin 14.4 g/dL (12.0-16.0); Lymphocytes Absolute Auto 2600 /uL (1100-4500); Lymphocytes Percent Auto 28.2 % (25-40); Mean Corpuscular HGB Conc 34.8 % (30-36); Mean Corpuscular Hemoglobin 30.7 PG (26-34); Mean Corpuscular Volume 88.1 fL (80-100); Monocytes Absolute Auto 500 /uL (0-900); Monocytes Percent Auto 5.2 % (3-14); Neutrophils Absolute Auto 5900 /uL (1500-7000); Platelet Count 258 X10^3/uL (150-400); Red Blood Cell Count 4.68 X10^6/uL (4.0-5.2); Red Cell Distribution Width 12.7 % (11.6-14.8); White Blood Cell Count 9.3 X10^3/uL (4.5-11.0)
[2022-12-28 18:13] LABS: Erythrocyte Sedimentation Rate 7 MM/HR (0-20)
[2022-12-28 18:19] LABS: Rheumatoid Factor < 8.6 IU/mL (<12.0)
[2022-12-28 18:20] LABS: C-Reactive Protein Quant 0.7 mg/dL (<1.0)
[2022-12-28 18:50] LABS: Thyroid Stimulating Hormone 0.109 uIU/mL (0.47-4.68)
[2022-12-28 20:06] LABS: Luteinizing Hormone 4.31 mIU/mL
[2023-01-02 18:18] LABS: CCP Antibodies IgG/IgA 3 units (0-19)
== END ==
PROVIDERS: PCP Family Medicine; Referring Provider Family Medicine; Visit Provider Family Medicine
DX: E03.9 Hypothyroidism, unspecified (principal)
CPT/HCPCS: 36415; 83002; 84443; 85025; 85651; 86140; 86200; 86430

== ENCOUNTER → 2023-01-08 16:14 | Outpatient (CLI) | payer OTHER, SELFPAY ==
[2023-01-08 18:14] LABS: Thyroid Stimulating Hormone 0.802 uIU/mL (0.47-4.68)
== END ==
PROVIDERS: PCP Family Medicine; Referring Provider Physician Assistant; Visit Provider Physician Assistant
DX: R79.89 Other specified abnormal findings of blood chemistry (principal)
CPT/HCPCS: 36415; 84443

== ENCOUNTER → 2023-06-27 11:49 | Outpatient (CLI) | payer OTHER, SELFPAY ==
--- NOTE | 2023-06-27 11:50 | DI.US.S_ITS ---
PROCEDURE: US PERIPH VENOUS LOW EXTREM LT INDICATIONS: POSTERIOR THIGH PAIN X 4 WEEKS TECHNIQUE: Real-time imaging, as well as color and pulse Doppler interrogation, were performed of the lower extremity deep veins from the inguinal ligament to the popliteal fossa, with documentation of the visualized calf veins. COMPARISON: None. FINDINGS: The common femoral, femoral, popliteal, and the visualized calf veins are normally compressible, and free of intraluminal thrombus. Color and pulse Doppler demonstrate normal phasic intraluminal flow. There is normal augmentation response to distal compression maneuver. IMPRESSION: No findings of lower extremity deep venous thrombosis. Dictated by: Rafael Torres M.D. on 06/27/2023 at 12:03 Approved by: Rafael Torres M.D. on 06/27/2023 at 12:03
== END ==
PROVIDERS: PCP Family Medicine; Referring Provider Physician Assistant; Visit Provider Physician Assistant
DX: M79.605 Pain in left leg (principal)
CPT/HCPCS: 93971

== ENCOUNTER → 2023-11-08 15:24 | Outpatient (CLI) | payer OTHER, SELFPAY ==
--- NOTE | 2023-11-08 15:27 | DI.RAD.S_ITS ---
PROCEDURE: XR FOOT LT MIN 3V INDICATIONS: Joint Pain TECHNIQUE: 3 views of the foot were acquired. COMPARISON: None. FINDINGS: No acute fracture or dislocation. The Lisfranc interval is preserved on the nonweightbearing view. Bipartite medial hallux sesamoid. Type 2 accessory navicular. The joint spaces are preserved. IMPRESSION: No acute fracture or dislocation of the left foot. Dictated by: Destin Barrios M.D. on 11/09/2023 at 14:40 Approved by: Destin Barrios M.D. on 11/09/2023 at 14:42
--- NOTE | 2023-11-08 15:58 | DI.RAD.S_ITS ---
PROCEDURE: XR LUMBAR SPINE 2-3V INDICATIONS: low back pain TECHNIQUE: 3 views of the lumbar spine were acquired. COMPARISON: None. FINDINGS: Bones: 5 [id number] vertebrae are present. Minimal levocurvature of the lumbar spine with the apex at L2. The lumbar lordosis is preserved. Mild facet arthropathy at L4-L5 and L5-S1. No significant foraminal narrowing. The vertebral body heights are preserved. Mild intervertebral disc height loss at L5-S1. Soft tissues: Overlying bowel gas pattern is normal. No suspicious soft tissue calcifications. IMPRESSION: Mild facet arthropathy at L4-L5 and L5-S1. Otherwise, no radiographic abnormality of the lumbar spine. Dictated by: Destin Barrios M.D. on 11/09/2023 at 15:05 Approved by: Destin Barrios M.D. on 11/09/2023 at 15:06
== END ==
PROVIDERS: PCP Family Medicine; Referring Provider Family Medicine; Visit Provider Family Medicine
DX: M47.816 Spondylosis without myelopathy or radiculopathy, lumbar region (principal); M47.817 Spondylosis without myelopathy or radiculopathy, lumbosacral region; M54.50 Low back pain, unspecified; M79.672 Pain in left foot; M79.605 Pain in left leg
CPT/HCPCS: 72100; 73630

== ENCOUNTER → 2023-11-23 09:58 | Outpatient (CLI) | payer OTHER, SELFPAY ==
--- NOTE | 2023-11-23 09:59 | DI.RAD.S_ITS ---
PROCEDURE: XR CERVICAL SPINE 2V OR 3V INDICATIONS: hand pain and swelling, possible cervical nerve involvement TECHNIQUE: Three views (s) of the cervical spine were acquired. COMPARISON: None. FINDINGS: Cervical spine curvature and alignment: Normal. Bones: There are no osseous abnormalities. Disc spaces: Normal in height without significant degeneration. Intervertebral foramen: Grossly normal in width. Soft tissues: No soft tissue swelling, calcification or mass. IMPRESSION: Normal cervical spine. Dictated by: Fede Ureña M.D. on 11/26/2023 at 8:42 Approved by: Fede Ureña M.D. on 11/26/2023 at 8:42
== END ==
PROVIDERS: PCP Family Medicine; Referring Provider Family Medicine; Visit Provider Family Medicine
DX: M79.641 Pain in right hand (principal); M79.642 Pain in left hand
CPT/HCPCS: 72040

== ENCOUNTER → 2023-12-18 10:20 | Outpatient (CLI) | payer OTHER, SELFPAY ==
[2023-12-18 11:17] LABS: Add Manual Diff / Slide Review NO; Basophils Absolute Auto 0 /uL (0-100); Basophils Percent Auto 0.7 % (0-2); Eosinophils Absolute Auto 100 /uL (0-450); Eosinophils Percent Auto 1.8 % (2-4); Hematocrit 43.7 % (36-46); Hemoglobin 15.1 g/dL (12.0-16.0); Lymphocytes Absolute Auto 2200 /uL (1100-4500); Lymphocytes Percent Auto 32.4 % (25-40); Mean Corpuscular HGB Conc 34.4 % (30-36); Mean Corpuscular Hemoglobin 30.8 PG (26-34); Mean Corpuscular Volume 89.5 fL (80-100); Monocytes Absolute Auto 300 /uL (0-900); Monocytes Percent Auto 5.2 % (3-14); Neutrophils Absolute Auto 4000 /uL (1500-7000); Neutrophils Percent Auto 59.9 % (50-75); Platelet Count 254 X10^3/uL (150-400); Red Blood Cell Count 4.88 X10^6/uL (4.0-5.2); Red Cell Distribution Width 13.1 % (11.6-14.8); White Blood Cell Count 6.7 X10^3/uL (4.5-11.0)
[2023-12-18 11:41] LABS: Alanine Aminotransferase 42 IU/L (<35); Albumin 4.2 g/dL (3.5-5.0); Albumin Globulin Ratio 1.5 (1.0-2.8); Alkaline Phosphatase 98 U/L (38-126); Aspartate Aminotransferase 31 IU/L (14-36); BUN Creatinine Ratio 14.5 (6-22); Bilirubin Total 0.6 mg/dL (0.2-1.3); Blood Urea Nitrogen 11 mg/dL (7-17); Calcium 9.5 mg/dL (8.4-10.2); Carbon Dioxide 25 mmol/L (22-32); Chloride 107 mmol/L (98-107); Cholesterol 201 mg/dL (140-199); Estimated Glomerular Filt Rate > 60 mL/min (>60); Globulin 2.8 g/dL (1.7-4.1); Glucose 93 mg/dL (70-100); HDL Cholesterol 54 mg/dL (40-60); HEMOLYSIS < 15 (0-50); LDL Cholesterol Calculated 127 mg/dL (<100); Sodium 139 mmol/L (137-145); Triglycerides 101 mg/dL (35-150)
[2023-12-18 11:57] LABS: Progesterone, Total 0.24 ng/mL
[2023-12-18 11:58] LABS: Vitamin D 25 Hydroxy (D3) 25.3 ng/mL (30.0-100.0)
[2023-12-18 12:11] LABS: Cortisol AM (Before 10AM) 5.23 ug/dL (4.46-22.7)
[2023-12-18 12:12] LABS: TSH w/ Reflex to FT4 1.33 uIU/mL (0.47-4.68)
[2023-12-18 12:13] LABS: Estradiol, Total 36.7 pg/mL
[2023-12-18 12:14] LABS: Testosterone 19.3 ng/dL (5.71-77.0)
[2023-12-20 07:11] LABS: Dehydroepiandrosterone Sulfate 35.1 ug/dL (57.3-279.2)
== END ==
PROVIDERS: Family Provider Family Medicine; PCP Family Medicine; Referring Provider Family Medicine; Visit Provider Family Medicine
DX: E03.9 Hypothyroidism, unspecified (principal); Z79.890 Hormone replacement therapy; R52 Pain, unspecified; R53.83 Other fatigue; Z13.21 Encounter for screening for nutritional disorder; Z79.899 Other long term (current) drug therapy; G89.29 Other chronic pain; E66.9 Obesity, unspecified; M25.511 Pain in right shoulder
CPT/HCPCS: 36415; 80053; 80061; 82306; 82533; 82627; 82670; 84144; 84403; 84443; 85025

== ENCOUNTER → 2024-01-03 08:53 | Outpatient (CLI) | payer OTHER, SELFPAY | LOC: PHYS 08:54 | PROVIDERS: Family Provider Family Medicine; PCP Family Medicine; Referring Provider Family Medicine; Visit Provider Family Medicine | DX: M79.641 Pain in right hand (principal); R20.0 Anesthesia of skin; M79.601 Pain in right arm | CPT/HCPCS: 95886; 95913 ==